=== PATIENT | male | born 1975 | race African-American/Black ===

== ENCOUNTER → 2017-03-15 | Outpatient (CLI) | payer MEDICARE ==
--- NOTE | 2017-03-15 12:07 | Diagnostic Imaging Report ---
EXAM: Scrotal Ultrasound with Duplex INDICATION: \[id number] \[id number] \S\NEOPLASM OF UNCERTAIN BEHAVIOR OF TESTIS COMPARISON: None TECHNIQUE: Transverse and longitudinal images were obtained of the scrotum with grayscale imaging, color Doppler and spectral waveform analysis. FINDINGS: Right testis: Size: 4.1 x 1.8 x 2.4 cm, normal in size. Echogenicity: Normal Mass/Cysts: None Left testis: Size: 2.2 x 3.5 x 2.5 cm, normal in size. Echogenicity: Normal Mass/Cysts: None Epididymis: Appearance: Normal in size without increased vascularity. Mass/Cysts: 1.1 cm right epididymal head cyst/spermatocele. 1.6 cm left epididymal head cyst/spermatocele. Extratesticular: Masses: None Hydrocele: Small right and moderate mildly complex left hydrocele. Varicocele: None Doppler: Normal arterial flow to both testes and symmetrical flow on color Doppler evaluation is seen. No evidence of testicular torsion. IMPRESSION: 1. No evidence of testicular torsion. 2. No testicular mass visualized. 3. Small right and moderate mildly complex left hydroceles. 4. Bilateral epididymal head cyst/spermatoceles. Signed by: Dr. Bolivar Rodriguez MD on 03/15/2017 12:03 PM
== END ==
LOC: US 10:09
PROVIDERS: ATTEND Urology
DX: D40.10 Neoplasm of uncertain behavior of unspecified testis (principal)
CPT/HCPCS: 76870; 93976